=== PATIENT | female | born 1990 | race Two or more races ===

== ENCOUNTER → 2017-02-07 | Outpatient (CLI) | payer MEDICAID | LOC: BRMIMAGING 13:30 | PROVIDERS: ATTEND Internal Medicine Rheumatology | DX: M08.041 Unspecified juvenile rheumatoid arthritis, right hand (principal); M08.0 Unspecified juvenile rheumatoid arthritis; M08.07 Unspecified juvenile rheumatoid arthritis, ankle and foot | CPT/HCPCS: 73120-PO; 73630-PO ==

== ENCOUNTER → 2017-04-23 | Outpatient (CLI) | payer MEDICAID | LOC: BRMIMAGING 13:53 | PROVIDERS: ATTEND Internal Medicine Rheumatology | DX: M06.09 Rheumatoid arthritis without rheumatoid factor, multiple sites (principal) | CPT/HCPCS: 72202-PO ==